=== PATIENT | female | born 1955 | race Caucasian/White ===

== ENCOUNTER 2021-06-04 08:50 | Outpatient (CLI) | payer OTHER, SELFPAY ==
--- NOTE | 2021-06-04 08:57 | MM_ITS ---
WS: [id number] BILATERAL SCREENING DIGITAL MAMMOGRAM WITH CAD HISTORY: SCREENING COMPARISON: 06/17/2019 and 05/25/2018 Bilateral CC and MLO views submitted. Computer aided detection analyzed. Breast composition: There are scattered areas of fibroglandular density. No suspicious masses, microc alcifications or architectural distortion. There are a few scattered benign calcifications. MM/[place] [id number] IMPRESSION: BI-RADS: 2-Benign FOLLOW UP: 1 Year Follow-up
== END 2021-06-04 08:51 | disposition home or self-care (01) ==
LOC: RADSHAW 08:55
PROVIDERS: PCP Family Medicine; Visit Provider Family Medicine
DX: Z12.31 Encounter for screening mammogram for malignant neoplasm of breast (principal)
CPT/HCPCS: 77067

== ENCOUNTER 2022-06-06 08:24 | Outpatient (CLI) | payer MEDICARE, OTHER, SELFPAY ==
--- NOTE | 2022-06-06 08:29 | MM_ITS ---
WS: [id number] BILATERAL SCREENING DIGITAL TOMOSYNTHESIS MAMMOGRAM WITH CAD HISTORY: SCREENING COMPARISON: 06/04/2021 and 06/17/2019 Bilateral CC and MLO views with tomosynthesis and synthetic mammography submitted. Computer aided det ection analyzed. Breast composition: The breasts are heterogeneously dense, which may obscure small masses. No suspici ous masses, microcalcifications or architectural distortion. Benign calcifications in the central LEF T breast. MM/[place] [id number] IMPRESSION: BI-RADS: 2-Benign FOLLOW UP: 1 Year Follow-up
== END 2022-06-06 08:25 | disposition home or self-care (01) ==
LOC: RAD 08:26
PROVIDERS: PCP Family Medicine; Visit Provider Family Medicine
DX: Z12.31 Encounter for screening mammogram for malignant neoplasm of breast (principal)
CPT/HCPCS: 77063; 77067

== ENCOUNTER 2023-06-08 09:17 | Outpatient (CLI) | payer MEDICARE, OTHER, SELFPAY ==
--- NOTE | 2023-06-08 09:29 | MM_ITS ---
WS: [email or web address] VIEWS: MLO and CC views both breasts. 3D digital tomosynthesis is also included in this exam. Comparison made with prior exam of 02/17/2016, 05/08/2017, 05/25/2018, 06/17/2019, 06/06/2022.. Findings: There appear to be new grouped micro and pleomorphic calcifications in the central LEFT breast. No as sociated mass or architectural distortion noted. Magnification spot compression views in the CC, MLO and straight 90 degree lateral views of the LEFT breast would be indicated for further work-up. No ne w finding in the RIGHT breast. The breasts are heterogeneously dense which may obscure small masses Impression: MM/[place] [id number] BI-RADS: 0-Incomplete: Need additional imaging evaluation FOLLOW-UP: See Report This mammogram was also analyzed by the Computer Aided Detection System R2 Imag e Social Services Specialist.
== END 2023-06-08 09:18 | disposition home or self-care (01) ==
PROVIDERS: PCP Family Medicine; Visit Provider Family Medicine
DX: Z12.31 Encounter for screening mammogram for malignant neoplasm of breast (principal)
CPT/HCPCS: 77063; 77067

== ENCOUNTER 2023-08-07 09:15 | Outpatient (CLI) | payer MEDICARE, OTHER, SELFPAY ==
--- NOTE | 2023-08-07 09:21 | MM_ITS ---
WS: [email or web address] VIEWS:. Magnification spot compression views of the LEFT breast in the MLO and CC projections are obt ained as well as a 90 degrees lateral view to include tomography. Comparison made with prior exam of 06/08/2023. Findings: Again noted are new grouped micro and pleomorphic calcifications in the central LEFT breast almost di rectly behind the nipple. There may be a small ill-defined associated nodule with calcifications. No other suspicious areas identified. Stereotactic biopsy of the LEFT breast is suggested for definitive evaluation. The LEFT breast is heterogeneously dense which may obscure small masses. Impression: MM/[place] [id number] BI-RADS: 4-Suspicious Finding-Biopsy Should Be Considered FOLLOW-UP: Stereotactic Biopsy Recommended This mammogram was also analyzed by the Computer Aided Detection System R2 Imag e Lap Grinder.
== END 2023-08-07 09:16 | disposition home or self-care (01) ==
LOC: RAD 09:15
PROVIDERS: PCP Family Medicine; Visit Provider Family Medicine
DX: R92.8 Other abnormal and inconclusive findings on diagnostic imaging of breast (principal)
CPT/HCPCS: 77061; G0279

== ENCOUNTER 2023-08-29 12:30 | Outpatient (CLI) | payer MEDICARE, OTHER, SELFPAY ==
--- NOTE | 2023-08-29 | MM_ITS ---
WS: [email or web address] STEREOTACTIC LEFT BREAST BIOPSY WITH VACUUM ASSISTANCE. History: Heterogeneous LEFT breast calcifications. Biopsy recommended for suspicious calcifications. Comparison: 08/07/2023 Procedure, risks, and complications were discussed the patient who agreed to proceed. Prior imaging w as reviewed. Cluster of calcifications within the left breast are localized. Stereotactic imaging was performed. P atient was prepped and draped in usual sterile fashion. After 1% lidocaine, calcifications were targe constanza stereotactically in the LEFT breast. Small incision was made. Needle advanced into the cluster of calcifications LEFT breast with imaging demonstrating appropriate position relative to the calcifica tions. Multiple vacuum-assisted core biopsies were obtained. Postprocedure imaging demonstrates calci fications within the biopsy specimen. The biopsy cavity was lavaged. Titanium clip was placed at the biopsy site. Postprocedure imaging dem onstrates clip in good position. No immediate complications. IMPRESSION: 1. Uncomplicated vacuum-assisted stereotactic biopsy of calcifications in the LEFT breast. 2. Consider ultrasound LEFT breast to evaluate for underlying parenchymal lesion in the area of calc ifications considering pathology. 3. Recommend Breast surgery consultation. MM/MM surgical specimen LT Pathology: Pathology demonstrates invasive ductal carcinoma with pleomorphic ca lcifications. Precursor lesion: DCIS comedo high-grade. Breast cancer prognosti c profile is pending and will be reported separately by pathology Notified Jose Morrison MD at 09/04/2023 10:39 AM.
--- NOTE | 2023-08-29 | MM_ITS ---
WS: [email or web address] STEREOTACTIC LEFT BREAST BIOPSY WITH VACUUM ASSISTANCE. History: Heterogeneous LEFT breast calcifications. Biopsy recommended for suspicious calcifications. Comparison: 08/07/2023 Procedure, risks, and complications were discussed the patient who agreed to proceed. Prior imaging w as reviewed. Cluster of calcifications within the left breast are localized. Stereotactic imaging was performed. P atient was prepped and draped in usual sterile fashion. After 1% lidocaine, calcifications were targe constanza stereotactically in the LEFT breast. Small incision was made. Needle advanced into the cluster of calcifications LEFT breast with imaging demonstrating appropriate position relative to the calcifica tions. Multiple vacuum-assisted core biopsies were obtained. Postprocedure imaging demonstrates calci fications within the biopsy specimen. The biopsy cavity was lavaged. Titanium clip was placed at the biopsy site. Postprocedure imaging dem onstrates clip in good position. No immediate complications. IMPRESSION: 1. Uncomplicated vacuum-assisted stereotactic biopsy of calcifications in the LEFT breast. 2. Consider ultrasound LEFT breast to evaluate for underlying parenchymal lesion in the area of calc ifications considering pathology. 3. Recommend Breast surgery consultation. MM/[place] [id number] Pathology: Pathology demonstrates invasive ductal carcinoma with pleomorphic ca lcifications. Precursor lesion: DCIS comedo high-grade. Breast cancer prognosti c profile is pending and will be reported separately by pathology Notified Jose Morrison MD at 09/04/2023 10:39 AM.
--- NOTE | 2023-08-29 | MM_ITS ---
WS: [email or web address] STEREOTACTIC LEFT BREAST BIOPSY WITH VACUUM ASSISTANCE. History: Heterogeneous LEFT breast calcifications. Biopsy recommended for suspicious calcifications. Comparison: 08/07/2023 Procedure, risks, and complications were discussed the patient who agreed to proceed. Prior imaging w as reviewed. Cluster of calcifications within the left breast are localized. Stereotactic imaging was performed. P atient was prepped and draped in usual sterile fashion. After 1% lidocaine, calcifications were targe constanza stereotactically in the LEFT breast. Small incision was made. Needle advanced into the cluster of calcifications LEFT breast with imaging demonstrating appropriate position relative to the calcifica tions. Multiple vacuum-assisted core biopsies were obtained. Postprocedure imaging demonstrates calci fications within the biopsy specimen. The biopsy cavity was lavaged. Titanium clip was placed at the biopsy site. Postprocedure imaging dem onstrates clip in good position. No immediate complications. IMPRESSION: 1. Uncomplicated vacuum-assisted stereotactic biopsy of calcifications in the LEFT breast. 2. Consider ultrasound LEFT breast to evaluate for underlying parenchymal lesion in the area of calc ifications considering pathology. 3. Recommend Breast surgery consultation. MM/[place] [id number] Pathology: Pathology demonstrates invasive ductal carcinoma with pleomorphic ca lcifications. Precursor lesion: DCIS comedo high-grade. Breast cancer prognosti c profile is pending and will be reported separately by pathology Notified Jose Morrison MD at 09/04/2023 10:39 AM.
[2023-09-07 07:00] LABS: Breast Profile ER,PR,HER2,Ki-6 See Report
== END 2023-08-29 12:31 | disposition home or self-care (01) ==
LOC: RAD 12:30
PROVIDERS: PCP Family Medicine; Visit Provider Family Medicine
DX: D05.12 Intraductal carcinoma in situ of left breast (principal)
CPT/HCPCS: 19081; 77065; 88305; 88361; 88374

== ENCOUNTER 2023-11-29 13:05 | Outpatient (CLI) | payer MEDICARE, OTHER, SELFPAY ==
--- NOTE | 2023-11-29 13:11 | MR_ITS ---
WS: [email or web address] MRI FACE WITH AND WITHOUT CONTRAST. COMPARISON: None Multiplanar, multisequence imaging is performed with and without contrast. MultiHance 18 mL IV. There is an expansile mass of low signal on the T1 sequence and intermediate signal on T2 sequence. T here are a few areas of low signal scattered throughout which may be bone fragments. There is continu ation of this mass into the RIGHT maxilla. Hypertrophic bone formation or thickening of the floor of the RIGHT maxillary sinus. The RIGHT maxillary sinus is rudimentary. Mass measures 4.0 x 2.5 cm and i s contiguous with the maxilla extending to the floor of the RIGHT maxillary sinus. Small air-fluid level LEFT maxillary sinus. No acute additional abnormalities noted. The remaining si nuses are negative. Orbits and globes are negative. IMPRESSION: 1. Heterogeneous expansile osseous with enhancement and a rudimentary RIGHT maxillary sinus. Partial obscuration by dental hardware. This is probably a nonaggressive process. 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 May need additional imaging or biopsy for confirmation. Additional etiologies to co nsider are ossifying fibroma an osteoma. This diagnosis would be better evaluated by CT. By history p luis's had a prior sinus CT that is not available. 2. Consider follow-up sinus CT with bone detail.
== END 2023-11-29 13:06 | disposition home or self-care (01) ==
LOC: RAD 13:06
PROVIDERS: PCP Family Medicine; Visit Provider Specialist
DX: G50.1 Atypical facial pain (principal); J34.89 Other specified disorders of nose and nasal sinuses; R93.0 Abnormal findings on diagnostic imaging of skull and head, not elsewhere classified; E11.9 Type 2 diabetes mellitus without complications; K52.1 Toxic gastroenteritis and colitis; T38.3X5A Adverse effect of insulin and oral hypoglycemic [antidiabetic] drugs, initial encounter; Z79.84 Long term (current) use of oral hypoglycemic drugs
CPT/HCPCS: 70543; 99204

== ENCOUNTER 2024-01-08 10:45 | Outpatient (CLI) | payer MEDICARE, OTHER, SELFPAY ==
--- NOTE | 2024-01-08 10:52 | CTR_ITS ---
PROCEDURE INFORMATION: Exam: CT Maxillofacial With Contrast Exam date and time: 01/08/2024 11:09 AM Age: 68 years old Clinical indication: Face pain; Patient HX: Atypical facial pain, right side of face/ maxilla area, cracking her teeth with it's growth per patient. HX of breast cancer TECHNIQUE: Imaging protocol: Computed tomography of the face with contrast. Radiation optimization: All CT scans at this facility use at least one of these dose optimization techniques: automated exposure control; mA and/or kV adjustment per patient size (includes targeted exams where dose is matched to clinical indication); or iterative reconstruction. Contrast material: OMNI 350; Contrast volume: 11 ml; Contrast route: INTRAVENOUS (IV); COMPARISON: MR orbit face neck wo/w* [id number] 11/29/2023 1:25 PM RADIATION DOSE METRICS: Total DLP (mGy-cm): 555.18 FINDINGS: Orbital cavities: Bony orbits are intact. The globes, intraconal/extraconal fat, extraocular muscles and optic nerves are grossly unremarkable. Bones/joints: There is chronic bony deformity of the right maxilla and bony thickening of the maxilla/zygoma on the right with associated decreased caliber of the right maxillary sinus. No evidence of acute facial fracture. There is a fracture through the right 2nd maxillary molar (for example, image 30 of series 4). Severe left-sided foraminal stenosis at C3-C4 secondary to uncovertebral hypertrophy and facet arthrosis. Paranasal sinuses: Decreased caliber of the right maxillary sinus. Paranasal sinuses are otherwise well-aerated. Small right maxillary sinus mucous retention cyst. Lymph nodes: No evidence of adenopathy. Soft tissues: Grossly unremarkable. Vasculature: The visualized carotid and vertebral arteries are patent. The visualized internal jugular veins are patent without evidence of thrombosis. CT/CT facial bones w con [id number] IMPRESSION: 1. 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 2. Fracture of the right 2nd maxillary molar. Follow-up dental evaluation is recommended.
[2024-01-08] MEDS: iohexol 350 mg/mL 500 mL Btl (per mL) IV (11:21)
== END 2024-01-08 10:46 | disposition home or self-care (01) ==
LOC: RAD 10:45
PROVIDERS: PCP Family Medicine; Visit Provider Specialist
DX: G50.1 Atypical facial pain (principal); S02.5XXA Fracture of tooth (traumatic), initial encounter for closed fracture; Y99.9 Unspecified external cause status
CPT/HCPCS: 70487; Q9967

== ENCOUNTER 2024-01-19 08:01 | Oncology outpatient (recurring) (ONCR) | payer MEDICARE, OTHER, SELFPAY ==
--- NOTE | 2024-01-10 08:54 | N.ONRAD NP_ITS ---
Radiation Oncology New Patient Visit Patient: Quyen Cain MR#: [id number] : 1955> Age: 68> Sex: Female> Dictated by: Dr. Vianca Jackson Date of Service: 01/10/2024 Referring Physician(s) : Diagnosis: Invasive ductal carcinoma of left breast C50.912 Invasive ductal carcinoma of right breast C50.911 Radiotherapy to date: Summary > No prior radiation therapy. Chief Complaint / History of Present Illness: Patient is a 68-year-old lady who had been getting yearly mammograms. Her most recent mammogram had shown an abnormality in the left breast. She was sent for evaluation of this and had an MRI of both breasts which showed that she had 2 lesions in the right and 1 in the left. She had all of these biopsied. The 1 lesion in the left was in invasive ductal as was 1 in the right but the second 1 on the right was lobular. All were grade 1 to grade 2. She subsequently had breast conserving surgery done on October. 1 lesion on the right was 1.5 cm and lobular grade 1. Second lesion on the right was 1.8 cm invasive ductal grade 1. The lesion on the left was invasive ductal with DCIS to the margin. She subsequently had this lesion reexcised. The reexcision was on December 19, 2023. She has had her Oncotype which is shown a low score. She is here today to discuss the radiation portion of her treatment. 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 Current Complaints / Review of Systems: . Denies any complaints today. All pertinent negatives Vital Signs: Performed on 01/10/2024 8:08 AM BMI - 27.004 kg/m2 (high), Height - 68 in, Weight - 177.6 lbs, Temperature - 96.4 f, Pulse - 76 /min, Respiration - 18 /min, O2 Sat - 99 %, Pain - 0, Fatigue - 0 and BP - 127/ 82 mm(hg). Physical Exam: General: Patient is in no apparent distress accompanied today by her HEENT: Normocephalic atraumatic. Pupils are equal, sclera clear, extraocular muscles intact. Pulmonary: Respiratory rate is regular nonlabored Cardiovascular: Regular rate and rhythm Breast examination: Both axillary incisions and breast incisions have nicely healed. There is no erythema drainage or induration. Abdomen: Nonprotuberant Extremities: Without obvious edema, no clubbing or cyanosis noted Skin: Without ecchymoses, warm and dry, Neurological: Alert and orient x 3. Gait speech within normal limits Psych: Affect appropriate for current situation Performance Status: 100 Pathology: See above Imaging: See HPI Impression: Bilateral early stage breast cancer Plan: I reviewed the series of events that have led her to this point. We talked about the surgery that she had. We reviewed the role of radiation and breast conserving surgery. We discussed the simulation process. We reviewed the daily treatment regiment. We discussed the risks and side effects both acute and long-term. We also discussed using lotion on the skin during treatment to keep the skin from drying out. She tans so we should not have any major issues with her skin other than getting darker. We talked about some different regimens for treatment. Based on her age and the surgeries she has had I recommended that we proceed with bilateral radiation. We did talk about alternatives being the use of tamoxifen or Arimidex. She has previously talked with medical oncology about the possible need for these medications. We talked about how at this point with her early stage breast cancer the tamoxifen and Arimidex have been used to decrease the risk of breast cancer in the untreated breast. Since both of her breasts will have been treated the benefit for these medications would be minimal. At this point she is agreed to proceed. Will have her return for simulation and begin her treatment shortly thereafter. Plan for a 4-week course of treatment Signed by: 01/10/2024 8:53:01 AM <<Signature on File>> Time spent with patient: CPT Code: CPT Code:
== END 2024-01-19 23:59 | disposition home or self-care (01) ==
PROVIDERS: PCP Family Medicine; Visit Provider Radiology Radiation Oncology
DX: Z51.0 Encounter for antineoplastic radiation therapy (principal); C50.911 Malignant neoplasm of unspecified site of right female breast; C50.912 Malignant neoplasm of unspecified site of left female breast
CPT/HCPCS: 36415; 77290; 77295; 77300; 77334; 77387; 77412; 77417; 99205

== ENCOUNTER 2024-01-23 08:03 | Oncology outpatient (recurring) (ONCR) | payer MEDICARE, OTHER, SELFPAY | END 2024-01-23 23:59 | disposition home or self-care (01) | PROVIDERS: PCP Family Medicine; Visit Provider Radiology Radiation Oncology | DX: Z51.0 Encounter for antineoplastic radiation therapy (principal); C50.911 Malignant neoplasm of unspecified site of right female breast; C50.912 Malignant neoplasm of unspecified site of left female breast | CPT/HCPCS: 77387; 77412 ==

== ENCOUNTER 2024-02-13 08:05 | Oncology outpatient (recurring) (ONCR) | payer MEDICARE, OTHER, SELFPAY ==
--- NOTE | 2024-01-24 22:41 | ONCRAD TMN_ITS ---
Radiation Oncology Weekly Treatment Management Patient: Quyen Cain MR#: [id number] : 1955 Attending Physician: Anuj Mcgarry Date of Service: 01/24/2024 Referring Physician(s) : Diagnosis: C50.512 - Malignant neoplasm of lower-outer quadrant of left female breast, Diagnosed 01/11/2024 (Active) C50.511 - Malignant neoplasm of lower-outer quadrant of right female breast, Diagnosed 01/11/2024 (Active) Radiotherapy to date: Course: both side breast, Treatment Site: RT [id number], Ref. ID: [id number], Energy: 15X/6X, Dose/Fx (cGy): 266, #Fx: 6 / 16, Dose Correction (cGy): 0, Total Dose Delivered (cGy): 1,596, Start Date: 01/17/2024, Elapsed Days: 7 Course: both side breast, Treatment Site: L [id number], Ref. ID: [id number], Energy: 15X/6X, Dose/Fx (cGy): 266, #Fx: 6 / 16, Dose Correction (cGy): 0, Total Dose Delivered (cGy): 1,596, Start Date: 01/17/2024, Elapsed Days: 7 Reason for visit: The patient is being seen today as part of their regularly scheduled weekly on treatment visits to assess for acute toxicities from radiotherapy. Review of Systems: Doing well. No skin sxs. Using Aquaphor. Energy level ok. Active at home. Vital Signs: Performed on 01/24/2024 8:14 AM BMI - 27.217 kg/m2 (high), Height - 68 in, Weight - 179 lbs, Temperature - 96 f, Pulse - 84 /min, Respiration - 16 /min, O2 Sat - 99 %, Pain - 0, Fatigue - 0 and BP - 130/ 82 mm(hg). Physical Exam: Imaging: Radiation therapy imaging related to accurate target localization (i.e. KV, MV and CBCT) was reviewed. Appropriate changes, if any, were made to ensure treatment accuracy. Plan: Good tolerance of treatment. Continue as planned. Signed by: Anuj Mcgarry 01/24/2024 10:39:25 PM Telemedicine Consent Patient seen today via Telemedicine by agreement and consent of patient. Telemedicine technology used during the visit include audio and, as available, review of images. This patient encounter is appropriate and reasonable under the circumstances given the patient???s particular presentation at this time. The patient has been advised of the potential risks and limitations of this mode of treatment (including but not limited to the absence of in-person examination) and has agreed to be treated in a remote fashion in spite of them. Any and all of the patient???s/patient???s family???s questions on this issue have been answered and I have made no promises or guarantees to the patient. The patient has also been advised to contact this office for worsening conditions or problems, and seek emergency medical treatment and/or call 911 if the patient deems either necessary.
--- NOTE | 2024-01-30 13:04 | ONCRAD TMN_ITS ---
Radiation Oncology Weekly Treatment Management Patient: Quyen Cain MR#: [id number] : 1955 Attending Physician: Anuj Mcgarry Date of Service: 01/30/2024 Referring Physician(s) : Diagnosis: C50.512 - Malignant neoplasm of lower-outer quadrant of left female breast, Diagnosed 01/11/2024 (Active) C50.511 - Malignant neoplasm of lower-outer quadrant of right female breast, Diagnosed 01/11/2024 (Active) Radiotherapy to date: Course: both side breast, Treatment Site: RT [id number], Ref. ID: [id number], Energy: 15X/6X, Dose/Fx (cGy): 266, #Fx: 10 / 16, Dose Correction (cGy): 0, Total Dose Delivered (cGy): 2,660, Start Date: 01/17/2024, Elapsed Days: 13 Course: both side breast, Treatment Site: L [id number], Ref. ID: [id number], Energy: 15X/6X, Dose/Fx (cGy): 266, #Fx: 10 / 16, Dose Correction (cGy): 0, Total Dose Delivered (cGy): 2,660, Start Date: 01/17/2024, Elapsed Days: 13 Reason for visit: The patient is being seen today as part of their regularly scheduled weekly on treatment visits to assess for acute toxicities from radiotherapy. Review of Systems: Doing well overall. Using a diabetic lotion and Aquaphor. No real breast sxs. Busy with 8 grandchildren. Vital Signs: Performed on 01/30/2024 8:23 AM BMI - 27.46 kg/m2 (high), Height - 68 in, Weight - 180.6 lbs, Temperature - 96.2 f, Pulse - 86 /min, Respiration - 16 /min, O2 Sat - 97 %, Pain - 0, Fatigue - 0 and BP - 147/ 77 mm(hg)(high/). Physical Exam: Mild bilateral breast erythema. Imaging: Radiation therapy imaging related to accurate target localization (i.e. KV, MV and CBCT) was reviewed. Appropriate changes, if any, were made to ensure treatment accuracy. Plan: Good tolerance of treatment. Continue as planned. Signed by: Anuj Mcgarry 01/30/2024 1:03:47 PM
--- NOTE | 2024-02-06 23:21 | ONCRAD TMN_ITS ---
Radiation Oncology Weekly Treatment Management Patient: Ant Torres MR#: [id number] : 1955> Attending Physician: Anuj Mcgarry Date of Service: 02/05/2024 Referring Physician(s) : Diagnosis: C50.512 - Malignant neoplasm of lower-outer quadrant of left female breast, Diagnosed 01/11/2024 (Active) C50.511 - Malignant neoplasm of lower-outer quadrant of right female breast, Diagnosed 01/11/2024 (Active) Radiotherapy to date: Course: both side breast, Treatment Site: RT [id number], Ref. ID: [id number], Energy: 15X/6X, Dose/Fx (cGy): 266, #Fx: 14 / 16, Dose Correction (cGy): 0, Total Dose Delivered (cGy): 3,724, Start Date: 01/17/2024, Elapsed Days: 19 Treatment Site: L [id number], Ref. ID: [id number], Energy: 15X/6X, Dose/Fx , (cGy): 266, #Fx: 14 / 16, Dose Correction (cGy): 0, Total Dose Delivered (cGy): 3,724, Start Date: 01/17/2024, Elapsed Days: 19 Reason for visit: The patient is being seen today as part of their regularly scheduled weekly on treatment visits to assess for acute toxicities from radiotherapy. Review of Systems: No interval changes. No breast or skin symptoms. Using Aquaphor Vital Signs: Performed on 02/05/2024 3:16 PM BMI - 27.369 kg/m2 (high), Height - 68 in, Weight - 180 lbs, Temperature - 98.7 f, Pulse - 73 /min, Respiration - 18 /min, O2 Sat - 96 %, Pain - 0, Fatigue - 0 and BP - 140/ 80 mm(hg). Physical Exam: Imaging: Radiation therapy imaging related to accurate target localization (i.e. KV, MV and CBCT) was reviewed. Appropriate changes, if any, were made to ensure treatment accuracy. Plan: Good tolerance of treatment. Continue as planned. 10 minutes was spent with patient and in charting. Signed by: Anuj Mcgarry 02/06/2024 11:20:25 PM Telemedicine Consent Patient seen today via Telemedicine by agreement and consent of patient. Telemedicine technology used during the visit include audio and, as available, review of images. This patient encounter is appropriate and reasonable under the circumstances given the patient???s particular presentation at this time. The patient has been advised of the potential risks and limitations of this mode of treatment (including but not limited to the absence of in-person examination) and has agreed to be treated in a remote fashion in spite of them. Any and all of the patient???s/patient???s family???s questions on this issue have been answered and I have made no promises or guarantees to the patient. The patient has also been advised to contact this office for worsening conditions or problems, and seek emergency medical treatment and/or call 911 if the patient deems either necessary.
--- NOTE | 2024-02-13 09:40 | N.ONRD TS_ITS ---
Radiation Oncology Treatment Summary/ Treatment Management Patient: Ant>Quyen> MR#: [id number] : 1955> Age: 68> Sex: Female Dictated by: Dr. Vianca Jackson Date of Service: 02/13/2024 Referring Physician(s) : Diagnosis: C50.512 - Malignant neoplasm of lower-outer quadrant of left female breast, Diagnosed 01/11/2024 (Active) C50.511 - Malignant neoplasm of lower-outer quadrant of right female breast, Diagnosed 01/11/2024 (Active) Radiotherapy to Date: Course: both side breast, Treatment Site: LT Boost, Ref. ID: [id number], Energy: 15X/6X, Dose/Fx (cGy): 250, #Fx: 4 / 4, Dose Correction (cGy): 0, Total Dose Delivered (cGy): 1,000, Start Date: 02/08/2024, End Date: 02/13/2024, Elapsed Days: 5 Treatment Site: RT Boost, Ref. ID: [id number], Energy: 15X/6X, Dose/Fx (cGy): 250, #Fx: 4 / 4, Dose Correction (cGy): 0, Total Dose Delivered (cGy): 1,000, Start Date: 02/08/2024, End Date: 02/13/2024, Elapsed Days: 5 Treatment Site: RT [id number], Ref. ID: [id number], Energy: 15X/6X, Dose/Fx (cGy): 266, #Fx: 16 / 16, Dose Correction (cGy): 0, ,Total Dose Delivered (cGy): 4,256, Start Date: 01/17/2024, End Date: 02/07/2024, Elapsed Days: 21 Treatment Site: L [id number], Ref. ID: [id number], Energy: 15X/6X, Dose/Fx (cGy): 266, #Fx: 16 / 16, Dose Correction (cGy): 0, Total Dose Delivered (cGy): 4,256, Start Date: 01/17/2024, End Date: 02/07/2024, Elapsed Days: 21 Clinical Summary: The patient tolerated RT well. Both breasts were treated and were minimally changed up until last Monday. She woke up on Monday and found that both breasts were more erythematous and actually pruritic. On examination her breasts are erythematous and a rash she distribution. She finds that they are most pruritic in the axillary fold in the inframammary fold. I told her those areas will most likely peel over the next week. I encouraged her to use cortisone cream on the areas where she is itchy. Will otherwise see her back in a month or she will call if any problems should arise in the interim. Plan: End of treatment today. Continue on the above medication until the skin reaction resolves. Follow up in one month. Signed by: Dr. Vianca Jackson>02/13/2024 9:39:05 AM <<Signature on File>>
== END 2024-02-23 23:59 | disposition home or self-care (01) ==
PROVIDERS: PCP Family Medicine; Visit Provider Radiology Radiation Oncology
DX: Z53.9 Procedure and treatment not carried out, unspecified reason (principal); C50.911 Malignant neoplasm of unspecified site of right female breast; C50.912 Malignant neoplasm of unspecified site of left female breast; Z79.899 Other long term (current) drug therapy; Z17.0 Estrogen receptor positive status [ER+]
CPT/HCPCS: 77336; 77387; 77412; 99024

== ENCOUNTER → 2024-02-29 08:53 | Outpatient (BNVA) | payer MEDICARE, OTHER, SELFPAY | PROVIDERS: PCP Family Medicine; Visit Provider Internal Medicine | DX: Z87.440 Personal history of urinary (tract) infections (principal); E11.9 Type 2 diabetes mellitus without complications; R35.0 Frequency of micturition; E55.9 Vitamin D deficiency, unspecified; K52.9 Noninfective gastroenteritis and colitis, unspecified; B37.9 Candidiasis, unspecified; E78.2 Mixed hyperlipidemia | CPT/HCPCS: 36415; 80053; 80061; 81001; 82044; 82306; 83036; 99214 ==

== ENCOUNTER 2024-03-18 08:53 | Oncology outpatient (recurring) (ONCR) | payer MEDICARE, OTHER, SELFPAY ==
[2024-03-05 10:40] LABS: Basophils % 0.5 %; Eosinophils # 0.2 10^3/uL (0.0-0.8); Eosinophils % 2.7 %; Hematocrit 45.3 % (36-47); Lymphocytes # 0.9 10^3/uL (0.8-4.8); Lymphocytes % 9.9 %; Mean Corpuscular HGB Conc 32.9 g/dL (30-55); Mean Corpuscular Volume 91.3 fl (85-98); Mean Platelet Volume 9.5 fL (7.4-10.4); Monocytes # 0.8 10^3/uL (0.2-0.9); Monocytes % 9.4 %; Neutrophils # 6.63 10^3/uL (1.8-7.7); Neutrophils % 76.8 %; Nucleated Red Blood Cells % 0 %; Platelet Count 240 10^3/cmm (157-399); Red Blood Count 4.96 10^6/uL (3.85-5.65); Red Cell Distribution Width 12.8 % (12.1-15.1); White Blood Count 8.62 10^3/uL (3.29-11.43)
[2024-03-05 11:02] LABS: Alanine Aminotransferase 18 U/L (0-33); Alkaline Phosphatase 148 U/L (35-105); Aspartate Amino Transferase 16 U/L (0-32); Blood Urea Nitrogen 17 mg/dL (8-23); Calcium 9.8 mg/dL (8.5-10.5); Carbon Dioxide 27 mmol/L (22-29); Chloride 98 mmol/L (98-107); Globulin 3.2 g/dL (1.3-4.6); Glomerular Filtration Rate 83.7 mL/min (90-130); Glucose 270 mg/dL (65-115); Osmolality Calculated 295 mOsm/kg (285-295); Sodium 137 mmol/L (136-145); Total Bilirubin 0.4 mg/dL (0.15-1.2); Total Protein 7.2 g/dL (6.6-8.7)
[2024-03-05 11:05] LABS: Anion Gap 16.5 (5-19); Potassium 4.5 mmol/L (3.5-5.1)
--- NOTE | 2024-03-18 10:24 | ONCRAD EPV_ITS ---
Radiation Oncology Established Patient Visit Patient: Quyen Cain [id number] : 1955 Age: 68 Sex: Female Dictated by: Dr. Vianca Jackson Date of Service: 03/18/2024 Patient returns today for her 1 month follow-up of radiation to both breasts Referring Physician(s) : Diagnosis: C50.512 - Malignant neoplasm of lower-outer quadrant of left female breast, Diagnosed 01/11/2024 (Active) C50.511 - Malignant neoplasm of lower-outer quadrant of right female breast, Diagnosed 01/11/2024 (Active) Radiotherapy to Date: Course: both side breast, Treatment Site: LT Boost, Ref. ID: [id number] Energy: 15X/6X, Dose/Fx (cGy): 250, #Fx: 4 / 4, Dose Correction (cGy): 0, Total Dose Delivered (cGy): 1,000, Start Date: 02/08/2024, End Date: 02/13/2024, Elapsed Days: 5 Course: both side breast, Treatment Site: RT Boost, Ref. ID: [id number], Energy: 15X/6X, Dose/Fx (cGy): 250, #Fx: 4 / 4, Dose Correction (cGy): 0, Total Dose Delivered (cGy): 1,000, Start Date: 02/08/2024, End Date: 02/13/2024, End Days: 5 Course: both side breast, Treatment Site: RT [id number], Ref. ID: [id number], Energy: 15X/6X, Dose/Fx (cGy): 266, #Fx: 16 / 16, Dose Correction (cGy): 0, Total Dose Delivered (cGy): 4,256, Start Date: 01/17/2024, End Date: 02/07/2024, Course: both side breast, Treatment Site: L [id number], Ref. ID: [id number], Energy: 15X/6X, Dose/Fx (cGy): 266, #Fx: 16 / 16, Dose Correction (cGy): 0, Total Dose Delivered (cGy): 4,256, Start Date: 01/17/2024, End Date: 02/07/2024, Elapsed Days: 21 Current History: Subjectively she is in good spirits. She has a good appetite although she gets full easily now that she is on Mounjaro. She did say that the skin peeled but she is healed up at this point. She is scheduled for her mammograms when she sees her surgeon on June in [place] Current Medications: Allergies: Current Complaints / Review of Systems: . Vital Signs: Performed on 03/18/2024 9:47 AM BMI - 26.244 kg/m2 (high), Height - 68 in, Weight - 172.6 lbs, Temperature - 96.6 f, Pulse - 84 /min, Respiration - 18 /min, O2 Sat - 96 %, Pain - 0, Fatigue - 0 and BP - 128/ 76 mm(hg). Physical Exam: General: Alert and oriented x 3. No acute distress. HEENT: Normocephalic, atraumatic. Extraocular Movements Intact: Pupils Equal, Round, Reactive to light.: Sclerae anicteric. LUNGS: Respiratory rate is regular nonlabored HEART: Regular rate and rhythm, . ABDOMEN: Mildly protuberant and android pattern EXTREMITIES: No peripheral edema is identified. NEUROLOGIC: Alert and orient x 3. Gait and speech within normal limits Breast exam: The skin is healed nicely. She does have some hyperpigmentation around the nipples. Otherwise there is no areas of moist or dry desquamation. Performance Status: 100 Lab: None pending. Pathology: Primary, c50.512 - malignant neoplasm of lower-outer quadrant of left female breast, Diagnosed 01/11/2024 (active) and Primary, c50.511 - malignant neoplasm of lower-outer quadrant of right female breast, Diagnosed 01/11/2024 (active) . Imaging: See HPI Impression: Bilateral stage I breast cancer Plan: She will be seeing the surgeon and June with her mammogram. I have asked her to return in a year. She did have lab work that she thinks is genetic testing. I was unable to find any results in the computer but apparently there is 1 is still pending from March 05. The medical oncologist did not wish to follow her anymore if she was not going to take any medication. At this point we will get those results and call those to her. At some point down the line when she has gotten settled in with her Mounjaro she might be interested in meeting with the new medical oncologist that are coming in. Signed by: 03/18/2024 10:22:17 AM <<Signature on File>> Time spent with [id number] CPT Code: CPT Code:
== END 2024-03-24 23:59 | disposition home or self-care (01) ==
PROVIDERS: Internal Medicine; PCP Family Medicine; Visit Provider Radiology Radiation Oncology
DX: C50.511 Malignant neoplasm of lower-outer quadrant of right female breast (principal); C50.512 Malignant neoplasm of lower-outer quadrant of left female breast; Z92.3 Personal history of irradiation; E11.9 Type 2 diabetes mellitus without complications; Z79.85 Long-term (current) use of injectable non-insulin antidiabetic drugs
CPT/HCPCS: 36415; 80053; 85025; 99024; 99213

== ENCOUNTER 2024-05-24 11:25 | Outpatient (CLI) | payer MEDICARE, OTHER, SELFPAY ==
[2024-05-24 12:03] LABS: Estmated Average Glucose 171; Hemoglobin A1C 7.6 % (4.0-6.0)
[2024-05-24 12:04] LABS: Alanine Aminotransferase 31 U/L (0-33); Albumin Level 4.1 g/dL (3.5-5.2); Alkaline Phosphatase 146 U/L (35-105); Anion Gap 13.2 (5-19); Aspartate Amino Transferase 25 U/L (0-32); Blood Urea Nitrogen 14 mg/dL (8-23); Calcium 9.2 mg/dL (8.5-10.5); Carbon Dioxide 29 mmol/L (22-29); Chloride 97 mmol/L (98-107); Chol HDL Ratio 6.29 mg/dL (0.0-4.40); Cholesterol 264 mg/dL (0-200); Globulin 2.5 g/dL (1.3-4.6); Glomerular Filtration Rate 99.7 mL/min (90-130); Glucose 211 mg/dL (65-115); HDL Cholesterol 42 mg/dL (60-100); LDL Cholesterol Calculated 169 mg/dL (50-129); LDL HDL Ratio 4.02 RATIO (0.00-3.22); Osmolality Calculated 287 mOsm/kg (285-295); Potassium 4.2 mmol/L (3.5-5.1); Sodium 135 mmol/L (136-145); Total Bilirubin 0.7 mg/dL (0.15-1.2); Total Protein 6.6 g/dL (6.6-8.7); Triglycerides 263 mg/dL (0-150)
[2024-05-24 12:14] LABS: Creatinine Urine, Random 144 mg/dL (28-217); Microalbum Creatinine Ratio Ur 7 mg/dL (0-20); Microalbumin Random Urine 1 ug/dL (0-20)
== END 2024-05-24 11:26 | disposition home or self-care (01) ==
LOC: LAB 11:28
PROVIDERS: PCP Family Medicine; Visit Provider Internal Medicine
DX: E11.9 Type 2 diabetes mellitus without complications (principal); R35.0 Frequency of micturition; E55.9 Vitamin D deficiency, unspecified
CPT/HCPCS: 36415; 80053; 80061; 82044; 83036

== ENCOUNTER → 2024-05-31 08:52 | Outpatient (BNVA) | payer MEDICARE, OTHER, SELFPAY | PROVIDERS: PCP Family Medicine; Visit Provider Internal Medicine | DX: E11.9 Type 2 diabetes mellitus without complications (principal); E78.2 Mixed hyperlipidemia; K52.9 Noninfective gastroenteritis and colitis, unspecified; R35.0 Frequency of micturition; B37.9 Candidiasis, unspecified; E55.9 Vitamin D deficiency, unspecified; Z79.84 Long term (current) use of oral hypoglycemic drugs | CPT/HCPCS: 99214 ==

== ENCOUNTER 2024-06-27 13:49 | Oncology outpatient (recurring) (ONCR) | payer MEDICARE, OTHER, SELFPAY ==
[2024-06-27 14:34] LABS: Basophils % 0.4 %; Eosinophils # 0.1 10^3/uL (0.0-0.8); Eosinophils % 1.5 %; Hematocrit 41.7 % (36-47); Lymphocytes # 1.2 10^3/uL (0.8-4.8); Lymphocytes % 18.2 %; Mean Corpuscular HGB Conc 32.9 g/dL (30-55); Mean Corpuscular Volume 91.2 fl (85-98); Mean Platelet Volume 9.6 fL (7.4-10.4); Monocytes # 0.6 10^3/uL (0.2-0.9); Monocytes % 8.5 %; Neutrophils # 4.81 10^3/uL (1.8-7.7); Neutrophils % 70.8 %; Nucleated Red Blood Cells % 0 %; Platelet Count 209 10^3/cmm (157-399); Red Blood Count 4.57 10^6/uL (3.85-5.65); Red Cell Distribution Width 13.3 % (12.1-15.1)
[2024-06-27 14:54] LABS: Alanine Aminotransferase 21 U/L (0-33); Alkaline Phosphatase 122 U/L (35-105); Anion Gap 13.3 (5-19); Aspartate Amino Transferase 21 U/L (0-32); Blood Urea Nitrogen 14 mg/dL (8-23); Calcium 9.2 mg/dL (8.5-10.5); Carbon Dioxide 29 mmol/L (22-29); Chloride 97 mmol/L (98-107); Globulin 3.2 g/dL (1.3-4.6); Glomerular Filtration Rate 71.5 mL/min (90-130); Glucose 266 mg/dL (65-115); Osmolality Calculated 290 mOsm/kg (285-295); Potassium 4.3 mmol/L (3.5-5.1); Sodium 135 mmol/L (136-145); Total Bilirubin 0.5 mg/dL (0.15-1.2); Total Protein 7.2 g/dL (6.6-8.7)
== END 2024-07-25 23:59 | disposition home or self-care (01) ==
PROVIDERS: Nurse Practitioner Family; PCP Family Medicine; Visit Provider Radiology Radiation Oncology
DX: C50.911 Malignant neoplasm of unspecified site of right female breast (principal); C50.912 Malignant neoplasm of unspecified site of left female breast; E55.9 Vitamin D deficiency, unspecified; E11.9 Type 2 diabetes mellitus without complications; Z79.85 Long-term (current) use of injectable non-insulin antidiabetic drugs; Z79.899 Other long term (current) drug therapy; Z17.0 Estrogen receptor positive status [ER+]
CPT/HCPCS: 36415; 80053; 85025; 99214

== ENCOUNTER 2024-08-28 10:57 | Outpatient (CLI) | payer MEDICARE, OTHER, SELFPAY ==
[2024-08-28 11:50] LABS: Estmated Average Glucose 206; Hemoglobin A1C 8.8 % (4.0-6.0)
[2024-08-28 12:06] LABS: Alanine Aminotransferase 17 U/L (0-33); Albumin Level 4.1 g/dL (3.5-5.2); Alkaline Phosphatase 106 U/L (35-105); Anion Gap 12.3 (5-19); Aspartate Amino Transferase 21 U/L (0-32); Blood Urea Nitrogen 10 mg/dL (8-23); Calcium 9.5 mg/dL (8.5-10.5); Carbon Dioxide 30 mmol/L (22-29); Chloride 99 mmol/L (98-107); Chol HDL Ratio 5.74 mg/dL (0.0-4.40); Cholesterol 195 mg/dL (0-200); Globulin 2.9 g/dL (1.3-4.6); Glomerular Filtration Rate 83.5 mL/min (90-130); Glucose 262 mg/dL (65-115); HDL Cholesterol 34 mg/dL (60-100); LDL Cholesterol Calculated 115 mg/dL (50-129); LDL HDL Ratio 3.38 RATIO (0.00-3.22); Osmolality Calculated 292 mOsm/kg (285-295); Potassium 4.3 mmol/L (3.5-5.1); Sodium 137 mmol/L (136-145); Total Bilirubin 0.3 mg/dL (0.15-1.2); Triglycerides 230 mg/dL (0-150)
[2024-08-28 12:15] LABS: Creatinine Urine, Random 117 mg/dL (28-217); Microalbum Creatinine Ratio Ur 9 mg/dL (0-20); Microalbumin Random Urine 1 ug/dL (0-20)
== END 2024-08-28 10:58 | disposition home or self-care (01) ==
LOC: LAB 10:58
PROVIDERS: PCP Family Medicine; Visit Provider Internal Medicine
DX: E11.9 Type 2 diabetes mellitus without complications (principal); E78.2 Mixed hyperlipidemia
CPT/HCPCS: 36415; 80053; 80061; 82044; 83036

== ENCOUNTER → 2024-09-03 10:52 | Outpatient (BNVA) | payer MEDICARE, OTHER, SELFPAY | PROVIDERS: PCP Family Medicine; Visit Provider Internal Medicine | DX: E11.9 Type 2 diabetes mellitus without complications (principal); E78.2 Mixed hyperlipidemia; K52.9 Noninfective gastroenteritis and colitis, unspecified; R35.0 Frequency of micturition; B37.9 Candidiasis, unspecified; E55.9 Vitamin D deficiency, unspecified; Z79.84 Long term (current) use of oral hypoglycemic drugs | CPT/HCPCS: 99214 ==

== ENCOUNTER 2024-10-03 10:30 | Oncology outpatient (recurring) (ONCR) | payer MEDICARE, OTHER, SELFPAY ==
[2024-09-26 10:09] LABS: Basophils % 0.5 %; Eosinophils # 0.1 10^3/uL (0.0-0.8); Eosinophils % 1.8 %; Hematocrit 42.8 % (36-47); Lymphocytes # 0.9 10^3/uL (0.8-4.8); Lymphocytes % 16.5 %; Mean Corpuscular HGB Conc 33.2 g/dL (30-55); Mean Corpuscular Hemoglobin 30.5 pg (27-33); Mean Platelet Volume 9.8 fL (7.4-10.4); Monocytes # 0.5 10^3/uL (0.2-0.9); Monocytes % 9.1 %; Neutrophils % 71.7 %; Nucleated Red Blood Cells % 0 %; Platelet Count 170 10^3/cmm (157-399); Red Blood Count 4.65 10^6/uL (3.85-5.65); Red Cell Distribution Width 12.7 % (12.1-15.1); White Blood Count 5.58 10^3/uL (3.29-11.43)
[2024-09-26 10:29] LABS: Alanine Aminotransferase 19 U/L (0-33); Albumin Level 4.2 g/dL (3.5-5.2); Alkaline Phosphatase 132 U/L (35-105); Aspartate Amino Transferase 21 U/L (0-32); Blood Urea Nitrogen 18 mg/dL (8-23); Calcium 9.4 mg/dL (8.5-10.5); Carbon Dioxide 29 mmol/L (22-29); Chloride 101 mmol/L (98-107); Globulin 2.7 g/dL (1.3-4.6); Glomerular Filtration Rate 55.3 mL/min (90-130); Glucose 323 mg/dL (65-115); Osmolality Calculated 304 mOsm/kg (285-295); Sodium 140 mmol/L (136-145); Total Bilirubin 0.6 mg/dL (0.15-1.2); Total Protein 6.9 g/dL (6.6-8.7)
[2024-09-26 10:30] LABS: Anion Gap 15.5 (5-19); Potassium 5.5 mmol/L (3.5-5.1)
[2024-10-03 11:03] LABS: Blood Urea Nitrogen 11 mg/dL (8-23); Calcium 9.4 mg/dL (8.5-10.5); Carbon Dioxide 29 mmol/L (22-29); Chloride 100 mmol/L (98-107); Glomerular Filtration Rate 99.7 mL/min (90-130); Glucose 271 mg/dL (65-115); Osmolality Calculated 295 mOsm/kg (285-295); Sodium 138 mmol/L (136-145)
== END 2024-10-25 23:59 | disposition home or self-care (01) ==
PROVIDERS: Nurse Practitioner Family; PCP Family Medicine; Visit Provider Radiology Radiation Oncology
DX: C50.911 Malignant neoplasm of unspecified site of right female breast; C50.912 Malignant neoplasm of unspecified site of left female breast; Z53.9 Procedure and treatment not carried out, unspecified reason
CPT/HCPCS: 36415; 80048; 80053; 85025; 99214

== ENCOUNTER 2024-11-26 08:42 | Outpatient (CLI) | payer MEDICARE, OTHER, SELFPAY ==
[2024-11-26 09:32] LABS: Alanine Aminotransferase 15 U/L (0-33); Albumin Level 4.2 g/dL (3.5-5.2); Alkaline Phosphatase 118 U/L (35-105); Anion Gap 15.6 (5-19); Aspartate Amino Transferase 17 U/L (0-32); Blood Urea Nitrogen 12 mg/dL (8-23); Calcium 9.6 mg/dL (8.5-10.5); Carbon Dioxide 28 mmol/L (22-29); Chloride 97 mmol/L (98-107); Chol HDL Ratio 5.56 mg/dL (0.0-4.40); Cholesterol 239 mg/dL (0-200); Globulin 3.1 g/dL (1.3-4.6); Glomerular Filtration Rate 71.5 mL/min (90-130); Glucose 304 mg/dL (65-115); HDL Cholesterol 43 mg/dL (60-100); LDL Cholesterol Calculated 152 mg/dL (50-129); LDL HDL Ratio 3.53 RATIO (0.00-3.22); Osmolality Calculated 293 mOsm/kg (285-295); Potassium 4.6 mmol/L (3.5-5.1); Sodium 136 mmol/L (136-145); Total Bilirubin 0.7 mg/dL (0.15-1.2); Total Protein 7.3 g/dL (6.6-8.7); Triglycerides 222 mg/dL (0-150)
[2024-11-26 09:36] LABS: Estmated Average Glucose 214; Hemoglobin A1C 9.1 % (4.0-6.0)
[2024-11-26 09:39] LABS: Creatinine Urine, Random 156 mg/dL (28-217); Microalbum Creatinine Ratio Ur 13 mg/dL (0-20); Microalbumin Random Urine 2 ug/dL (0-20)
== END 2024-11-26 08:43 | disposition home or self-care (01) ==
LOC: LAB 08:45
PROVIDERS: PCP Family Medicine; Visit Provider Internal Medicine
DX: E11.9 Type 2 diabetes mellitus without complications (principal); E78.2 Mixed hyperlipidemia
CPT/HCPCS: 36415; 80053; 80061; 82044; 83036

== ENCOUNTER → 2024-12-04 08:08 | Outpatient (BNVA) | payer MEDICARE, OTHER, SELFPAY | PROVIDERS: PCP Family Medicine; Visit Provider Internal Medicine | DX: E11.9 Type 2 diabetes mellitus without complications (principal); K52.9 Noninfective gastroenteritis and colitis, unspecified; R35.0 Frequency of micturition; B37.9 Candidiasis, unspecified; E55.9 Vitamin D deficiency, unspecified; E78.2 Mixed hyperlipidemia | CPT/HCPCS: 99214 ==

== ENCOUNTER → 2024-12-31 09:29 | Outpatient (BNVA) | payer MEDICARE, OTHER, SELFPAY | PROVIDERS: PCP Family Medicine; Visit Provider Internal Medicine | DX: E11.9 Type 2 diabetes mellitus without complications (principal); K52.9 Noninfective gastroenteritis and colitis, unspecified; E55.9 Vitamin D deficiency, unspecified; E78.2 Mixed hyperlipidemia | CPT/HCPCS: 99214 ==

== ENCOUNTER 2025-01-01 09:20 | Oncology outpatient (recurring) (ONCR) | payer MEDICARE, OTHER, SELFPAY ==
[2025-01-01 09:52] LABS: Basophils % 0.5 %; Eosinophils # 0.2 10^3/uL (0.0-0.8); Hematocrit 42.3 % (36-47); Lymphocytes % 14.8 %; Mean Corpuscular HGB Conc 33.1 g/dL (30-55); Mean Corpuscular Volume 90.6 fl (85-98); Mean Platelet Volume 9.7 fL (7.4-10.4); Monocytes # 0.5 10^3/uL (0.2-0.9); Monocytes % 7.8 %; Neutrophils # 4.69 10^3/uL (1.8-7.7); Nucleated Red Blood Cells % 0 %; Platelet Count 165 10^3/cmm (157-399); Red Blood Count 4.67 10^6/uL (3.85-5.65); Red Cell Distribution Width 12.5 % (12.1-15.1); White Blood Count 6.42 10^3/uL (3.29-11.43)
[2025-01-01 10:08] LABS: Alanine Aminotransferase 27 U/L (0-33); Albumin Level 4.1 g/dL (3.5-5.2); Alkaline Phosphatase 120 U/L (35-105); Anion Gap 15.3 (5-19); Aspartate Amino Transferase 19 U/L (0-32); Blood Urea Nitrogen 13 mg/dL (8-23); Calcium 9.6 mg/dL (8.5-10.5); Carbon Dioxide 29 mmol/L (22-29); Chloride 99 mmol/L (98-107); Creatinine Clr Calc Pharmacy 78.0473; Globulin 2.9 g/dL (1.3-4.6); Glomerular Filtration Rate 83.5 mL/min (90-130); Glucose 283 mg/dL (65-115); Osmolality Calculated 298 mOsm/kg (285-295); Potassium 4.3 mmol/L (3.5-5.1); Sodium 139 mmol/L (136-145); Total Bilirubin 0.5 mg/dL (0.15-1.2)
== END 2025-01-22 23:59 | disposition home or self-care (01) ==
PROVIDERS: Nurse Practitioner Family; PCP Family Medicine; Visit Provider Internal Medicine
DX: Z08 Encounter for follow-up examination after completed treatment for malignant neoplasm (principal); Z85.3 Personal history of malignant neoplasm of breast; Z92.3 Personal history of irradiation; E11.9 Type 2 diabetes mellitus without complications; Z79.4 Long term (current) use of insulin
CPT/HCPCS: 36415; 80053; 85025; 99214

== ENCOUNTER 2025-02-10 16:08 | Outpatient (CLI) | payer MEDICARE, OTHER, SELFPAY ==
--- NOTE | 2025-02-10 16:12 | CT_ITS ---
WS: [id number] CT SINUSES TECHNIQUE: Noncontrast CT of the paranasal sinuses with coronal and sagittal reformatted images. CLINICAL INFORMATION: SINSUSITIS, CHRONIC COMPARISON: 2023 DLP: 320.[address] scans at [facility] use at least one of these dose optimization techniques: automated exposure control; mA and/or kV adjustment per patient size (includes targeted exams where dose is matched to clinical indication); or iterative reconstruction. FINDINGS: LEFT RIGHT nasal septal deviation measuring 4 to 5 mm. LEFT massiel bullosa. Narrowing of the ostiomeatal units bilaterally which remain patent. 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 Mild mucosal thickening in the ethmoid air cells. Secretions within the RIGHT sphenoid sinus. Hypoplastic frontal sinuses. Frontoethmoidal recesses are patent. Few small retention cysts in the LEFT maxillary sinus the largest measuring 9 mm. Partially visualized mastoid air cells are well aerated. CT/CT sinus wo con* [id number] IMPRESSION: 1. S-shaped nasal deviation measuring 4 to 5 mm. 2. LEFT massiel bullosa. 3. Mild narrowing of the ostiomeatal units bilaterally which remain patent. 4. Hypoplastic frontal sinuses. 5. 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 6. A few small retention cysts in the LEFT maxillary sinus. 7. Frothy secretions in the RIGHT sphenoid sinus. 8. Mastoid air cells are well aerated.
== END 2025-02-10 16:09 | disposition home or self-care (01) ==
PROVIDERS: PCP Family Medicine; Visit Provider Specialist
DX: J32.9 Chronic sinusitis, unspecified (principal); J34.2 Deviated nasal septum; J34.89 Other specified disorders of nose and nasal sinuses; M27.8 Other specified diseases of jaws
CPT/HCPCS: 70486

== ENCOUNTER → 2025-03-05 08:22 | Outpatient (BNVA) | payer MEDICARE, OTHER, SELFPAY | PROVIDERS: PCP Family Medicine; Visit Provider Internal Medicine | DX: E11.9 Type 2 diabetes mellitus without complications (principal); E55.9 Vitamin D deficiency, unspecified; E78.2 Mixed hyperlipidemia | CPT/HCPCS: 99214 ==

== ENCOUNTER 2025-03-17 08:53 | Oncology outpatient (recurring) (ONCR) | payer MEDICARE, OTHER, SELFPAY ==
--- NOTE | 2025-03-17 09:46 | ONCRAD EPV_ITS ---
Radiation Oncology Established Patient Visit Patient: Quyen Cain [id number] : 1955 Age: 69 Sex: Female Dictated by: Alex Bae Date of Service: 03/17/2025 Referring Physician(s) : Diagnosis: C50.512 - Malignant neoplasm of lower-outer quadrant of left female breast, Diagnosed 01/11/2024 (Active) C50.511 - Malignant neoplasm of lower-outer quadrant of right female breast, Diagnosed 01/11/2024 (Active) Radiotherapy to Date: Course: both side breast, Treatment Site: LT Boost, Ref. ID: [id number], Energy: 15X/6X, Dose/Fx (cGy): 250, #Fx: 4 / 4, Dose Correction (cGy): 0, Total Dose Delivered (cGy): 1,000, Start Date: 02/08/2024, End Date: 02/13/2024, Elapsed Days: 5 Course: both side breast, Treatment Site: RT Boost, Ref. ID: [id number], Energy: 15X/6X, Dose/Fx (cGy): 250, #Fx: 4 / 4, Dose Correction (cGy): 0, Total Dose Delivered (cGy): 1,000, Start Date: 02/08/2024, End Date: 02/13/2024, Elapsed Days: 5 Course: both side breast, Treatment Site: RT [id number], Ref. ID: [id number], Energy: 15X/6X, Dose/Fx (cGy): 266, #Fx: 16 16, Dose Correction (cGy): 0, Total Dose Delivered (cGy): 4,256, Start Date: 01/17/2024, End Date: 02/07/2024, Elapsed Days: 21 Course: both side breast, Treatment Site: L [id number], Ref. ID: [id number], Energy: 15X/6X, Dose/Fx (cGy): 266, #Fx: 16 / 16, Dose Correction (cGy): 0, Total Dose Delivered (cGy): 4,256, Start Date: 01/17/2024, End Date: 02/07/2024, Elapsed Days: 21 Current History: This is a pleasant 69-year-old female who has history of bilateral breast cancers treated with adjuvant XRT completing 5256 cGy in 20 fractions on 02/13/2024. Patient refusing hormonal blockers at this time due to side effects that she is read about. She is scheduled for bilateral breast MR in June by her surgeon in [place]. She will see her PCP for either antianxiety or muscle relaxants. The this is due to significant pain when raising her arms that she has had for years. Current Medications: azelastine intranasal blood-glucose meter,continuous (Dexcom G7 Medical Physicist) As directed blood-glucose sensor (Dexcom G7 Sensor device) change every 10 days cholecalciferol (vitamin D3) 50 mcg PO DAILY coenzyme Q10 (Co Q-10) 10 mg PO TID hydroxyzine HCl mg PO injection ports (I-Port Advance 6 mm Injection Port) change every 3 days insulin glargine (Lantus Solostar U-100 Insulin) 30 units (0.3 mL) SUBCUT DAILY 1 month insulin syringe-needle U-100 (Easy Touch Insulin Syringe) As directed insulin syringes (disposable) As directed pravastatin TAKE 1 TABLET BY MOUTH DAILY sitagliptin phosphate (Januvia) 100 mg PO DAILY Allergies: aspirin Allergy (Intermediate) Hives Current Complaints / Review of Systems: . As above Vital Signs: Performed on 03/17/2025 9:14 AM BMI - 30.197 kg/m2 (high), Height - 68 in, Weight - 198.6 lbs, Temperature - 96.6 f, Pulse - 82 /min, Respiration - 17 /min, O2 Sat - 99 %, Pain - 0, Fatigue - 0 and BP - 125/ 78 mm(hg). Physical Exam: General: Alert and oriented x 3. No acute distress. HEENT: Normocephalic, atraumatic. Extraocular Movements Intact: Pupils Equal, Round, Reactive to Light and Accommodation: Sclerae anicteric. Oral cavity is clear without lesions, masses or ulcers. NECK: Supple without supraclavicular or jugular lymphadenopathy. LUNGS: Clear to auscultation bilaterally without rales, rhonchi or wheeze. HEART: Regular rate and rhythm, normal S1 and S2 without murmur, gallop or rub. MUSCULOSKELETAL: No tenderness or percussion pain over the axial skeleton, scapulae or pelvis. ABDOMEN: Soft, nontender, nondistended without masses or organomegaly. Bowell sounds are present. EXTREMITIES: No peripheral edema is identified. Limited motor and sensory examination are grossly intact and symmetric bilaterally. NEUROLOGIC: Cranial nerves II ???XII are grossly intact. Normal sensation, strength 5/5 in all extremities, normal gait, no ataxia. BREAST: Bilaterally soft with no hyperpigmentation. No mass appreciated in either breast. Performance Status: KPS 100 Lab: None pending. Pathology: Primary, c50.512 - malignant neoplasm of lower-outer quadrant of left female breast, Diagnosed 01/11/2024 (active) and Primary, c50.511 - malignant neoplasm of lower-outer quadrant of right female breast, Diagnosed 01/11/2024 (active) . Imaging: See HPI BL mammogram 01/22/2025 read as benign. BL BREAST MRI scheduled for June via surgeon. Impression: Bilateral breast IDC XRT-13 months ago RTC in 3 months or sooner if need be To see medical oncology in April. MRI BL in June. Signed by: 03/17/2025 9:45:11 AM <<Signature on File>> Time spent with patient: 20 minutes CPT Code: CPT Code:
== END 2025-03-24 23:59 | disposition home or self-care (01) ==
PROVIDERS: PCP Family Medicine; Visit Provider Radiology Radiation Oncology
DX: Z08 Encounter for follow-up examination after completed treatment for malignant neoplasm (principal); Z85.3 Personal history of malignant neoplasm of breast; Z92.3 Personal history of irradiation; E11.9 Type 2 diabetes mellitus without complications; Z79.4 Long term (current) use of insulin
CPT/HCPCS: 99024; 99213

== ENCOUNTER 2025-04-02 10:39 | Oncology outpatient (recurring) (ONCR) | payer MEDICARE, OTHER, SELFPAY ==
[2025-04-02 11:00] LABS: Hematocrit 41.5 % (36-47); Hemoglobin 13.60 g/dL (11.27-16.99); Mean Corpuscular HGB Conc 32.8 g/dL (30-55); Mean Corpuscular Hemoglobin 30.2 pg (27-33); Mean Corpuscular Volume 92.2 fl (85-98); Nucleated Red Blood Cells % 0 %; Platelet Count 178 10^3/cmm (157-399); Red Blood Count 4.50 10^6/uL (3.85-5.65); White Blood Count 8.30 10^3/uL (3.29-11.43)
[2025-04-02 11:15] LABS: Estmated Average Glucose 171; Hemoglobin A1C 7.6 % (4.0-6.0)
[2025-04-02 11:17] LABS: Alanine Aminotransferase 20 U/L (0-33); Albumin Level 4.1 g/dL (3.5-5.2); Alkaline Phosphatase 95 U/L (35-105); Anion Gap 15.4 (5-19); Aspartate Amino Transferase 20 U/L (0-32); Blood Urea Nitrogen 14 mg/dL (8-23); Calcium 9.4 mg/dL (8.5-10.5); Carbon Dioxide 28 mmol/L (22-29); Chloride 104 mmol/L (98-107); Cholesterol 234 mg/dL (0-200); Creatinine Clr Calc Pharmacy 80.7839; Globulin 2.9 g/dL (1.3-4.6); Glucose 119 mg/dL (65-115); HDL Cholesterol 46 mg/dL (60-100); Osmolality Calculated 298 mOsm/kg (285-295); Potassium 4.4 mmol/L (3.5-5.1); Sodium 143 mmol/L (136-145); Total Protein 7.0 g/dL (6.6-8.7); Triglycerides 115 mg/dL (0-150)
[2025-04-02 11:26] LABS: Creatinine Urine, Random 43 mg/dL (28-217); Microalbum Creatinine Ratio Ur 23 mg/dL (0-20)
== END 2025-04-24 23:59 | disposition home or self-care (01) ==
PROVIDERS: Internal Medicine; Nurse Practitioner Family; PCP Family Medicine; Visit Provider Radiology Radiation Oncology
DX: Z08 Encounter for follow-up examination after completed treatment for malignant neoplasm (principal); Z85.3 Personal history of malignant neoplasm of breast; Z92.3 Personal history of irradiation; E11.9 Type 2 diabetes mellitus without complications; Z79.4 Long term (current) use of insulin
CPT/HCPCS: 36415; 80053; 80061; 82044; 83036; 85025; 99213

== ENCOUNTER 2025-06-04 08:06 | Outpatient (CLI) | payer MEDICARE, OTHER, SELFPAY ==
[2025-06-04 08:43] LABS: Estmated Average Glucose 134; Hemoglobin A1C 6.3 % (4.0-6.0)
[2025-06-04 08:52] LABS: Creatinine Urine, Random 72 mg/dL (28-217); Microalbum Creatinine Ratio Ur 14 mg/dL (0-20)
[2025-06-04 08:56] LABS: Alanine Aminotransferase 28 U/L (0-33); Albumin Level 4.2 g/dL (3.5-5.2); Alkaline Phosphatase 122 U/L (35-105); Anion Gap 13.0 (5-19); Aspartate Amino Transferase 25 U/L (0-32); Blood Urea Nitrogen 17 mg/dL (8-23); Calcium 9.2 mg/dL (8.5-10.5); Carbon Dioxide 29 mmol/L (22-29); Chloride 104 mmol/L (98-107); Cholesterol 169 mg/dL (0-200); Globulin 2.9 g/dL (1.3-4.6); Glucose 85 mg/dL (65-115); HDL Cholesterol 47 mg/dL (60-100); Osmolality Calculated 295 mOsm/kg (285-295); Potassium 4.0 mmol/L (3.5-5.1); Sodium 142 mmol/L (136-145); Total Protein 7.1 g/dL (6.6-8.7); Triglycerides 110 mg/dL (0-150)
== END 2025-06-04 08:07 | disposition home or self-care (01) ==
LOC: LAB 08:07
PROVIDERS: PCP Family Medicine; Visit Provider Internal Medicine
DX: E55.9 Vitamin D deficiency, unspecified (principal); K52.9 Noninfective gastroenteritis and colitis, unspecified; E11.9 Type 2 diabetes mellitus without complications; E78.2 Mixed hyperlipidemia
CPT/HCPCS: 80053; 80061; 82044; 82306; 83036

== ENCOUNTER → 2025-06-11 08:12 | Outpatient (BNVA) | payer MEDICARE, OTHER, SELFPAY | PROVIDERS: PCP Family Medicine; Visit Provider Internal Medicine | DX: K52.9 Noninfective gastroenteritis and colitis, unspecified (principal); E11.9 Type 2 diabetes mellitus without complications; E55.9 Vitamin D deficiency, unspecified; E78.2 Mixed hyperlipidemia; Z79.4 Long term (current) use of insulin | CPT/HCPCS: 99214 ==

== ENCOUNTER 2025-06-16 09:51 | Oncology outpatient (recurring) (ONCR) | payer MEDICARE, OTHER, SELFPAY ==
--- NOTE | 2025-06-16 10:36 | ONCRAD EPV_ITS ---
Radiation Oncology Established Patient Visit Patient: Ant Napier [id number] : 1955> Age: 70> Sex: Female> Dictated by: Alex Bae Date of Service: 06/16/2025 Referring Physician(s) : Dr. Balaji Higgins Diagnosis: C50.512 - Malignant neoplasm of lower-outer quadrant of left female breast, Diagnosed 01/11/2024 (Active) C50.511 - Malignant neoplasm of lower-outer quadrant of right female breast, Diagnosed 01/11/2024 (Active) Radiotherapy to Date: Course: both side breast, Treatment Site: LT Boost, Ref. ID: [id number], Energy: 15X/6X, Dose/Fx (cGy): 250, #Fx: 4 / 4, Dose Correction (cGy): 0, Total Dose Delivered (cGy): 1, Start Date: 02/08/2024, End Date: 02/13/2024, Elapsed Days: 5 Treatment Site: RT Boost, Ref. ID: [id number], Energy: 15X/6X, Dose/Fx (cGy): 250, #Fx: 4 / 4, Dose Correction (cGy): 0, Total Dose Delivered (cGy): 1,000, Start Date: 02/08/2024, End Date: 02/13/2024, Elapsed Days: 5 Treatment Site: RT [id number], Ref. ID: [id number], Energy: 15X/6X, Dose/Fx (cGy): 266, #Fx: 16 / 16, Dose Correction (cGy): 0, Total Dose Delivered (cGy): 4,256, Start Date: 01/17/2024, End Date: 02/07/2024, Elapsed Days: 21 Treatment Site: L [id number], Ref. ID: [id number], Energy: 15X/6X, Dose/Fx (cGy): 266, #Fx: 16 / 16, Dose Correction (cGy): 0, Total Dose Delivered (cGy): 4,256, Start Date: 01/17/2024, End Date: 02/07/2024, Elapsed Days: 21 Current History: This is a pleasant 69-year-old female who is now 1.4 years status post adjuvant XRT to both breasts. She denies any problems at this time. She is not taking receptor therapy medication due to potential side effects. She is scheduled for mammogram in July and book bilateral breast MRI next week. She continues to use creams. Current Medications: azelastine intranasal blood-glucose sensor (DexCaptify G7 Sensor device) USE DIRECTED AND CHANGE EVERY 10 DAYS budesonide 0.5 mg inhalation DAILY cholecalciferol (vitamin D3) 50 mcg PO DAILY coenzyme Q10 (Co Q-10) 10 mg PO TID injection ports (I-Port Advance 6 mm Injection Port) change every 3 days insulin glargine (Lantus Solostar U-100 Insulin) 40 units (0.4 mL) SUBCUT DAILY 1 month insulin syringe-needle U-100 (Easy Touch Insulin Syringe) As directed insulin syringes (disposable) As directed nateglinide 120 mg PO TID omeprazole 20 mg PO DAILY pen needle, diabetic (Comfort EZ Pen [place]) As directed pravastatin TAKE 1 TABLET BY MOUTH DAILY sitagliptin phosphate (Januvia) TAKE 1 TABLET DAILY Allergies: aspirin Allergy Hives Current Complaints / Review of Systems: . Vital Signs: Performed on 06/16/2025 10:04 AM BMI - 31.718 kg/m2 (high), Height - 68 in, Weight - 208.6 lbs, Temperature - 96.9 f, Pulse - 80 /min, Respiration - 18 /min, O2 Sat - 100 %, Pain - 0, Fatigue - 0 and BP - 130/ 76 mm(hg). Physical Exam: General: Alert and oriented x 3. No acute distress. HEENT: Normocephalic, atraumatic. Extraocular Movements Intact: Pupils Equal, Round, Reactive to Light and Accommodation: Sclerae anicteric. Oral cavity is clear without lesions, masses or ulcers. NECK: Supple without supraclavicular or jugular lymphadenopathy. LUNGS: Clear to auscultation bilaterally without rales, rhonchi or wheeze. HEART: Regular rate and rhythm, normal S1 and S2 without murmur, gallop or rub. BREAST: Bilaterally intact x 2. They are pendulous in nature. There is mild fibrotic thickening of the left nipple areolar complex where her scar is. No nodularity noted in any scar lines bilaterally. No definable masses appreciated in either breast. MUSCULOSKELETAL: No tenderness or percussion pain over the axial skeleton, scapulae or pelvis. ABDOMEN: Soft, nontender, nondistended without masses or organomegaly. Bowell sounds are present. EXTREMITIES: No peripheral edema is identified. Limited motor and sensory examination are grossly intact and symmetric bilaterally. NEUROLOGIC: Cranial nerves II ???XII are grossly intact. Normal sensation, strength 5/5 in all extremities, normal gait, no ataxia. Performance Status: KPS 90 Lab: None pending. Pathology: Primary, c50.512 - malignant neoplasm of lower-outer quadrant of left female breast, Diagnosed 01/11/2024 (active) and Primary, c50.511 - malignant neoplasm of lower-outer quadrant of right female breast, Diagnosed 01/11/2024 (active) . Imaging: See HPI Impression: BL BREAST CANCER-AGUILAR by clinical exam PLAN: Breast MRI next week Mammogram bilaterally in July of this year next RTC in 3 months or sooner if need be. Signed by: 06/16/2025 10:33:59 AM <<Signature on File>> Time spent with patient: 25 minutes CPT Code: CPT Code:
== END 2025-06-24 23:59 | disposition home or self-care (01) ==
PROVIDERS: PCP Family Medicine; Visit Provider Radiology Radiation Oncology
DX: Z08 Encounter for follow-up examination after completed treatment for malignant neoplasm (principal); Z85.3 Personal history of malignant neoplasm of breast; Z92.3 Personal history of irradiation; E11.9 Type 2 diabetes mellitus without complications; Z79.4 Long term (current) use of insulin
CPT/HCPCS: 99213

== ENCOUNTER 2025-07-02 11:09 | Oncology outpatient (recurring) (ONCR) | payer MEDICARE, OTHER, SELFPAY ==
[2025-07-02 11:45] LABS: Hematocrit 41.8 % (36-47); Hemoglobin 13.60 g/dL (11.27-16.99); Mean Corpuscular HGB Conc 32.5 g/dL (30-55); Mean Corpuscular Hemoglobin 30.2 pg (27-33); Mean Corpuscular Volume 92.7 fl (85-98); Nucleated Red Blood Cells % 0 %; Platelet Count 172 10^3/cmm (157-399); Red Blood Count 4.51 10^6/uL (3.85-5.65); White Blood Count 7.18 10^3/uL (3.29-11.43)
[2025-07-02 12:02] LABS: Alanine Aminotransferase 37 U/L (0-33); Albumin Level 4.4 g/dL (3.5-5.2); Alkaline Phosphatase 140 U/L (35-105); Anion Gap 13.7 (5-19); Aspartate Amino Transferase 35 U/L (0-32); Blood Urea Nitrogen 15 mg/dL (8-23); Calcium 9.5 mg/dL (8.5-10.5); Carbon Dioxide 29 mmol/L (22-29); Chloride 101 mmol/L (98-107); Globulin 3.0 g/dL (1.3-4.6); Glucose 149 mg/dL (65-115); Osmolality Calculated 292 mOsm/kg (285-295); Potassium 4.7 mmol/L (3.5-5.1); Sodium 139 mmol/L (136-145); Total Protein 7.4 g/dL (6.6-8.7)
== END 2025-07-25 23:59 | disposition home or self-care (01) ==
PROVIDERS: Internal Medicine; PCP Family Medicine; Visit Provider Nurse Practitioner Family
DX: Z08 Encounter for follow-up examination after completed treatment for malignant neoplasm (principal); Z85.3 Personal history of malignant neoplasm of breast; E55.9 Vitamin D deficiency, unspecified; M79.10 Myalgia, unspecified site; Z79.4 Long term (current) use of insulin; Z92.3 Personal history of irradiation
CPT/HCPCS: 36415; 80053; 83615; 85025; 99214

== ENCOUNTER 2025-09-10 08:38 | Outpatient (CLI) | payer MEDICARE, OTHER, SELFPAY ==
[2025-09-10 09:25] LABS: Creatinine Urine, Random 157 mg/dL (28-217); Microalbum Creatinine Ratio Ur 6 mg/dL (0-20)
[2025-09-10 09:33] LABS: Alanine Aminotransferase 26 U/L (0-33); Albumin Level 4.0 g/dL (3.5-5.2); Alkaline Phosphatase 95 U/L (35-105); Aspartate Amino Transferase 22 U/L (0-32); Blood Urea Nitrogen 15 mg/dL (8-23); Calcium 9.1 mg/dL (8.5-10.5); Carbon Dioxide 29 mmol/L (22-29); Chloride 101 mmol/L (98-107); Cholesterol 266 mg/dL (0-200); Globulin 3.0 g/dL (1.3-4.6); Glucose 101 mg/dL (65-115); HDL Cholesterol 40 mg/dL (60-100); Osmolality Calculated 291 mOsm/kg (285-295); Sodium 140 mmol/L (136-145); Total Protein 7.0 g/dL (6.6-8.7); Triglycerides 183 mg/dL (0-150)
[2025-09-10 09:37] LABS: Anion Gap 13.9 (5-19); Potassium 3.9 mmol/L (3.5-5.1)
[2025-09-10 09:51] LABS: Estmated Average Glucose 137; Hemoglobin A1C 6.4 % (4.0-6.0)
== END 2025-09-10 08:39 | disposition home or self-care (01) ==
LOC: LAB 08:41
PROVIDERS: PCP Family Medicine; Visit Provider Internal Medicine
DX: E11.9 Type 2 diabetes mellitus without complications (principal)
CPT/HCPCS: 36415; 80053; 80061; 82044; 83036

== ENCOUNTER → 2025-09-16 08:52 | Outpatient (BNVA) | payer MEDICARE, OTHER, SELFPAY | PROVIDERS: PCP Family Medicine; Visit Provider Internal Medicine Endocrinology, Diabetes & Metabolism | DX: K52.9 Noninfective gastroenteritis and colitis, unspecified (principal); E11.9 Type 2 diabetes mellitus without complications; E55.9 Vitamin D deficiency, unspecified; E78.2 Mixed hyperlipidemia; R03.0 Elevated blood-pressure reading, without diagnosis of hypertension | CPT/HCPCS: 99213 ==

== ENCOUNTER 2025-09-22 09:49 | Oncology outpatient (recurring) (ONCR) | payer MEDICARE, OTHER, SELFPAY ==
--- NOTE | 2025-09-22 10:43 | ONCRAD EPV_ITS ---
Radiation Oncology Established Patient Visit Patient: Quyen Cain [id number] : 1955 Age: 70 Sex: Female Dictated by: Alex Bae Date of Service: 09/22/2025 Referring Physician(s) : Dr. Balaji Higgins Diagnosis: C50.512 - Malignant neoplasm of lower-outer quadrant of left female breast, Diagnosed 01/11/2024 (Active) C50.511 - Malignant neoplasm of lower-outer quadrant of right female breast, Diagnosed 01/11/2024 (Active) Radiotherapy to Date: Course: both side breast, Treatment Site: LT Boost, Ref. ID: [id number], Energy: 15X/6X, Dose/Fx (cGy): 250, #Fx: 4 / 4, Dose Correction (cGy): 0, Total Dose Delivered (cGy): 1,000, Start Date: 02/08/2024, End Date: 02/13/2024, Elapsed Days: 5 Course: both side breast, Treatment Site: RT Boost, Ref. ID: [id number], Energy: 15X/6X, Dose/Fx (cGy): 250, #Fx: 4 / 4, Dose Correction (cGy): 0, Total Dose Delivered (cGy): 1,000, Start Date: 02/08/2024, End Date: 02/13/2024, Elapsed Days: 5 Course: both side breast, Treatment Site: RT [id number], Ref. ID: [id number], Energy: 15X/6X, Dose/Fx (cGy): 266, #Fx: 16 16, Dose Correction (cGy): 0, Total Dose Delivered (cGy): 4,256, Start Date: 01/17/2024, End Date: 02/07/2024, Elapsed Days: 21 Course: both side breast, Treatment Site: L [id number], Ref. ID: [id number], Energy: 15X/6X, Dose/Fx (cGy): 266, #Fx: 16 / 16, Dose Correction (cGy): 0, Total Dose Delivered (cGy): 4,256, Start Date: 01/17/2024, End Date: 02/07/2024, Elapsed Days: 21 Current History: This is a pleasant 70-year-old female who is now 18 months from adjuvant XRT to both breast. She is NEVER taken receptor therapy due to potential side effects. She is also off her atorvastatin and will start receiving an injection for that. She stopped her atorvastatin approximately 6 Thanksgiving of this year. Current Medications: blood-glucose sensor (Dexcom G7 Sensor device) USE DIRECTED AND CHANGE EVERY 10 DAYS budesonide 0.5 mg inhalation DAILY cholecalciferol (vitamin D3) 50 mcg PO DAILY coenzyme Q10 (Co Q-10) 10 mg PO TID injection ports (I-Port Advance 6 mm Injection Port) change every 3 days insulin glargine (Lantus Solostar U-100 Insulin) 37 units (0.37 mL) SUBCUT DAILY 1 month insulin syringe-needle U-100 (Easy Touch Insulin Syringe) As directed insulin syringes (disposable) As directed nateglinide 120 mg PO TID pen needle, diabetic (Comfort EZ Pen [place]) As directed sitagliptin phosphate (Januvia) 100 mg PO DAILY Allergies: aspirin Allergy (Intermediate, Verified 07/02/25 12:32) Hives Current Complaints / Review of Systems: . Vital Signs: Performed on 09/22/2025 10:13 AM BMI - 32.873 kg/m2 (high), Height - 68 in, Weight - 216.2 lbs, Temperature - 96.8 f, Pulse - 75 /min, Respiration - 17 /min, O2 Sat - 98 %, Pain - 0, Fatigue - 0 and BP - 125/ 67 mm(hg). Physical Exam: General: Alert and oriented x 3. No acute distress. HEENT: Normocephalic, atraumatic. Extraocular Movements Intact: Pupils Equal, Round, Reactive to Light and Accommodation: Sclerae anicteric. Oral cavity is clear without lesions, masses or ulcers. NECK: Supple without supraclavicular or jugular lymphadenopathy. LUNGS: Clear to auscultation bilaterally without rales, rhonchi or wheeze. HEART: Regular rate and rhythm, normal S1 and S2 without murmur, gallop or rub. BREAST: Bilaterally symmetrical and intact bilaterally. No abnormal masses appreciated. MUSCULOSKELETAL: No tenderness or percussion pain over the axial skeleton, scapulae or pelvis. ABDOMEN: Soft, nontender, nondistended without masses or organomegaly. Bowell sounds are present. EXTREMITIES: No peripheral edema is identified. Limited motor and sensory examination are grossly intact and symmetric bilaterally. NEUROLOGIC: Cranial nerves II ???XII are grossly intact. Normal sensation, strength 5/5 in all extremities, normal gait, no ataxia. Performance Status: KPS 90 Lab: None pending. Pathology: Primary, c50.512 - malignant neoplasm of lower-outer quadrant of left female breast, Diagnosed 01/11/2024 (active) and Primary, c50.511 - malignant neoplasm of lower-outer quadrant of right female breast, Diagnosed 01/11/2024 (active) . Imaging: See HPI Impression: BL Breast Cancer-AGUILAR Plan: Continue surveillance. BL MAMMOGRAM in December 2025. RTC in 3 months or sooner if need be and if AGUILAR then go to 6 months. Signed by: 09/22/2025 10:42:07 AM <<Signature on File>> Time spent with patient: CPT Code: CPT Code:
== END 2025-09-24 23:59 | disposition home or self-care (01) ==
PROVIDERS: PCP Family Medicine; Visit Provider Nurse Practitioner Family
DX: Z08 Encounter for follow-up examination after completed treatment for malignant neoplasm (principal); Z85.3 Personal history of malignant neoplasm of breast; E55.9 Vitamin D deficiency, unspecified; M79.10 Myalgia, unspecified site; Z79.4 Long term (current) use of insulin; Z92.3 Personal history of irradiation
CPT/HCPCS: 99213